=== PATIENT | male | born 1970 ===

== ENCOUNTER → 2017-01-19 | Outpatient (REF) ==
--- NOTE | 2017-01-19 10:35 | DI ---
EXAM: PA and lateral views of the chest HISTORY: Screening COMPARISON: 12/02/2015 FINDINGS: No focal consolidation, pleural effusion or pneumothorax is identified. The cardiomediastinal silhouette is within normal limits. IMPRESSION: No acute cardiopulmonary findings.
== END ==
LOC: RAD 10:03
DX: Z02.89 Encounter for other administrative examinations (principal)